=== PATIENT | female | born 1990 | race Caucasian/White ===

== ENCOUNTER 2017-01-14 20:58 | Emergency (ER) | payer OTHER ==
[2017-01-14 21:07] VITALS: BP 138/89; PULSE 90; TEMP 98.6; BMI 30.9
--- NOTE | 2017-01-14 21:19 | PDOC ---
History of Present Illness - History of Present Illness Initial Comments: 01/14/17 21:23 The patient is a 26 year old female with no past medical hx who presents to the ED complaining of dysuria and frequency since this morning. The patient reports she has had UTIs in the past and believes she has one right now due to her symptoms. The patient was last seen here on 02/28/16 for the same complaint. The patient denies hematuria, fever, chills, back pain, abdominal pain. <Zaida Humphreys - Last Filed: 01/14/17 21:23> <Marion Hardwick - Last Filed: 01/15/17 02:42> - General Chief Complaint: Urinary Problem Stated Complaint: I DON'T FEEL GOOD Time Seen by Provider: 01/14/17 21:10 Past History <Zaida Humphreys - Last Filed: 01/14/17 21:23> - Past Medical History Asthma: No Cancer: No Cardiac Disorders: No Diabetes: No HTN: No Seizures: No Thyroid Disease: No Other medical history: DENIES - Surgical History Abdominal Surgery: Yes (gastric sleeve 08/10) Cholecystectomy: Yes - Immunization History Immunization Up to Date: No - Psycho/Social/Smoking Cessation Hx Anxiety: No Suicidal Ideation: No Smoking Status: No Smoking History: Never smoked Have you smoked in the past 12 months: No Number of Cigarettes Smoked Daily: 0 Hx Alcohol Use: No Drug/Substance Use Hx: No Substance Use Type: None Hx Substance Use Treatment: No <Marion Hardwick - Last Filed: 01/15/17 02:42> - Past Medical History Allergies/Adverse Reactions: Allergies Allergy/AdvReac Type Severity Reaction Status Date / Time No Known Allergies Allergy Verified 05/24/13 19:19 Home Medications: Ambulatory Orders Nitrofurantoin Monohyd/M-Cryst [Macrobid -] 100 mg PO BID #10 capsule 01/14/17 Phenazopyridine HCl [Pyridium] 200 mg PO TID #6 tablet 01/14/17 Review of Systems - Review of Systems Able to Perform ROS?: Yes Comments:: 01/14/17 21:24 CONSTITUTIONAL: Absent: fever, no chills, no fatigue EYES: Absent: visual changes ENT: Absent: ear pain, no sore throat CARDIOVASCULAR: Absent: chest pain, no palpitations RESPIRATORY: Absent: cough, no SOB GI: Absent: abdominal pain, no nausea, no vomiting, no constipation, no diarrhea GENITOURINARY: +Dysuria, frequency. Absent: no hematuria MUSCULOSKELETAL: Absent: back pain, no arthralgia, no myalgia SKIN: Absent: rash NEURO: Absent: headache <Zaida Humphreys - Last Filed: 01/14/17 21:23> *Physical Exam - Vital Signs Last Vital Signs Temp Pulse Resp BP Pulse Ox 98.6 F 90 16 138/89 100 01/14/17 21:05 01/14/17 21:05 01/14/17 21:05 01/14/17 21:05 01/14/17 21:05 - Physical Exam Comments: 01/14/17 21:24 GENERAL: The patient is awake, alert, and fully oriented, in no acute distress. HEAD: Normal with no signs of trauma. EYES: Pupils equal, round and reactive to light, extraocular movements intact, sclera anicteric, conjunctiva clear with no pallor. ENT: Ears normal, nares patent, oropharynx clear without exudates. Moist mucous membranes. NECK: Normal range of motion, supple without lymphadenopathy, JVD, or masses. LUNGS: Breath sounds equal, clear to auscultation bilaterally. No wheeze/ crackles. HEART: Regular rate and rhythm, normal S1 and S2 without murmur or rub. ABDOMEN: Soft/nontender/nondistended. BS wnl. No guarding or rebound. No palpable masses. No hepatosplenomegaly. EXTREMITIES: Normal range of motion, no edema. No clubbing or cyanosis. No cords, erythema, or tenderness. NEUROLOGICAL: Cranial nerves II through XII grossly intact. Normal speech, normal gait. PSYCH: Normal mood, normal affect. SKIN: Warm, Dry, normal turgor, no rashes or lesions noted. <MamtaZaida diaz - Last Filed: 01/14/17 21:23> - Vital Signs Last Vital Signs Temp Pulse Resp BP Pulse Ox 98.6 F 90 16 138/89 100 01/14/17 21:05 01/14/17 21:05 01/14/17 21:05 01/14/17 21:05 01/14/17 21:05 <Marion Hardwick - Last Filed: 01/15/17 02:42> Progress Note - Progress Note Progress Note: Documentation has been prepared under my direction and personally reviewed by me in its entirety. I attest that this documented accurately reflects all work, treatment, procedures and medical decision making performed by me. <Marion Hardwick - Last Filed: 01/15/17 02:42> Medical Decision Making - Medical Decision Making As noted above, this otherwise healthy 26-year-old woman presents with 1 day history of dysuria and urinary frequency/urgency. Patient has had several UTIs in the past and symptoms have been similar to today's. No fever/chills, nausea/ vomiting or back pain. Exam, as noted above is normal. Urinalysis shows positive nitrate, 10-20 RBCs, 10-20 WBCs and few bacteria.PGU negative Urine C&S has been sent. When the patient was last seen here with urinary tract infection (03/14), she will had persistent symptoms while being treated with Cipro. She was prescribed Macrodantin at that point. Patient states that she did well after Macrodantin was prescribed. Will give the patient Macrobid 100 mg twice a day for 5 days. Pyridium 200 mg will be prescribed at 3 tabs per day for 2 days. First dose of each medication will be given here in the emergency room. Patient should return to the emergency room if she has worsening pain, fever/ chills, back pain or vomiting <Marion Hardwick - Last Filed: 01/15/17 02:42> *DC/Admit/Observation/Transfer - Attestations Scribe Attestion: 01/14/17 21:23 Documentation prepared by Zaida Humphreys, acting as emergency medical technician/driver for Marion Hardwick MD/DO. <Zaida Humphreys - Last Filed: 01/14/17 21:23> <Marion Harwdick - Last Filed: 01/15/17 02:42> Diagnosis at time of Disposition: Urinary tract infection Qualifiers: Urinary tract infection type: acute cystitis Hematuria presence: without hematuria Qualified Code(s): N30.00 - Acute cystitis without hematuria - Discharge Dispostion Disposition: HOME Condition at time of disposition: Stable - Prescriptions Prescriptions: Nitrofurantoin Monohyd/M-Cryst [Macrobid -] 100 mg PO BID #10 capsule Phenazopyridine HCl [Pyridium] 200 mg PO TID #6 tablet - Referrals Referrals: Yumi Ceballos MD [Primary Care Provider] - - Patient Instructions Printed Discharge Instructions: Urinary Tract Infection Additional Instructions: drink plenty of fluids Macrobid 100mg twice a day for 5 days Pyridium 200mg 3 times a day for 3 days return to ER if you have worsening pain/fever/vomiting
[2017-01-14 21:23] LABS: PH,URINE 5.5 (4.5-8); URINE BILIRUBIN Negative (NEGATIVE); URINE GLUCOSE (UA) Negative (NEGATIVE); URINE KETONE Negative (NEGATIVE); URINE NITRITE Positive (NEGATIVE); URINE PROTEIN Negative (NEGATIVE); URINE UROBILINOGEN 0.2 E.U/dl (0.2-1.0)
[2017-01-14 21:24] LABS: URINE BLOOD 1+ (NEGATIVE); URINE COLOR YELLOW; URINE LEUK ESTERASE 1+ (NEGATIVE)
[2017-01-14] MEDS ORDERED: PHENAZOPYRIDINE HCL 100 MG TABLET (FP) PO ONE (21:29)
[2017-01-14] MEDS ORDERED: NITROFURANTOIN MACROCRYSTAL 50 MG CAPSULE (FP) PO SCH (21:30)
[2017-01-14] MEDS ORDERED: PHENAZOPYRIDINE HCL 100 MG TABLET (FP) ONE (21:31)
[2017-01-14] MEDS ORDERED: NITROFURANTOIN MACROCRYSTAL 50 MG CAPSULE (FP) ONE (21:31)
[2017-01-14 21:39] LABS: URINE APPEARANCE HAZY; URINE BACTERIA FEW /hpf (NEGATIVE)
== END 2017-01-14 21:36 | disposition home or self-care (01) ==
LOC: FER 20:58
DX: N30.00 Acute cystitis without hematuria (principal); Z98.84 Bariatric surgery status
CPT/HCPCS: 81003; 81015; 84703; 87086; 99281-25

== ENCOUNTER 2017-02-21 09:31 | Emergency (ER) | payer OTHER ==
--- NOTE | 2017-02-21 09:37 | PDOC ---
History of Present Illness - General Chief Complaint: Urinary Problem Stated Complaint: BURING ON URINATION Time Seen by Provider: 02/21/17 09:37 - History of Present Illness Initial Comments: 02/21/17 09:52 Chief complaint: Dysuria and urgency History of present illness: Symptoms began this morning. No hematuria. No fever or back pain. Frequent UTIs, last of which approximately one month ago, treated with Macrodantin with symptoms resolving. No history of kidney disease. Never evaluated by a urologist. Review of systems: Denies vaginal itching or discharge suggestive of vaginitis. Denies fever or back pain, as noted above. Denies chest pain, shortness of breath, abdominal pain, nausea, vomiting, diarrhea. Menses regular, no control including hormonal therapy. Past medical history: Recurrent UTIs. Cholecystitis in the past without surgery. Otherwise healthy. No serious medical or surgical illnesses in the past Social history: Active, no disability, denies tobacco alcohol or nonprescription drugs Family history: Reviewed and noncontributory including kidney disease, early coronary artery disease, metabolic disease including diabetes, and cancer Physical exam: Alert and oriented well-developed well-nourished no acute distress cheerful and cooperative Afebrile, vital signs normal HEENT clear Neck supple without bruit mass or nodes Chest clear CV regular without murmur rub or gallop Abdomen nondistended, soft without masses tenderness organomegaly. Normal bowel sounds. No CVAT Extremities no CCE Skin clear, no rash, adequate turgor and what mucous membranes Neurological intact. Gait stable and unimpaired Impression: Recurrent UTI. Other possibilities include vaginitis. Rule out . No suggestion of ascending kidney involvement or nephrolithiasis Plan: Urinalysis, empiric antibiotic treatment and Pyridium for symptomatic treatment, culture and sensitivity, urology referral. 02/21/17 09:56 Past History - Past Medical History Allergies/Adverse Reactions: Allergies Allergy/AdvReac Type Severity Reaction Status Date / Time No Known Allergies Allergy Verified 02/21/17 09:34 Home Medications: Ambulatory Orders Nitrofurantoin Monohyd/M-Cryst [Macrobid -] 100 mg PO BID #14 capsule 02/21/17 Phenazopyridine HCl [Pyridium] 200 mg PO TID PRN #20 tablet 02/21/17 Asthma: No Cancer: No Cardiac Disorders: No Diabetes: No Disorders: Yes (UTI) HTN: No Seizures: No Thyroid Disease: No - Surgical History Abdominal Surgery: Yes (gastric sleeve 08/10) Cholecystectomy: Yes - Immunization History Immunization Up to Date: No - Psycho/Social/Smoking Cessation Hx Anxiety: No Suicidal Ideation: No Smoking Status: No Smoking History: Never smoked Have you smoked in the past 12 months: No Number of Cigarettes Smoked Daily: 0 Hx Alcohol Use: No Drug/Substance Use Hx: No Substance Use Type: None Hx Substance Use Treatment: No Medical Decision Making - Medical Decision Making 02/21/17 10:33 White blood cells, leukocyte esterase positive in the urine. Culture pending Antibiotics and Pyridium prescribed. Referral to urologist. Patient in no pain or other distress upon discharge to follow-up as directed *DC/Admit/Observation/Transfer Diagnosis at time of Disposition: Urinary tract infection Qualifiers: Urinary tract infection type: acute cystitis Hematuria presence: without hematuria Qualified Code(s): N30.00 - Acute cystitis without hematuria - Discharge Dispostion Disposition: HOME Condition at time of disposition: Stable Admit: No - Prescriptions Prescriptions: Nitrofurantoin Monohyd/M-Cryst [Macrobid -] 100 mg PO BID #14 capsule Phenazopyridine HCl [Pyridium] 200 mg PO TID PRN #20 tablet PRN Reason: burning on urination, urgency, - Referrals Referrals: Dwight See MD., MD [Staff Physician] - 1 week - Patient Instructions Printed Discharge Instructions: DI for Urinary Tract Infection (UTI)
[2017-02-21 09:39] VITALS: BP 120/77; PULSE 84; TEMP 97.9; BMI 31.7
[2017-02-21] MEDS ORDERED: PHENAZOPYRIDINE HCL 100 MG TABLET (FP) PO ONE (09:51)
[2017-02-21] MEDS ORDERED: PHENAZOPYRIDINE HCL 100 MG TABLET (FP) ONE (09:56)
[2017-02-21 10:02] LABS: PH,URINE 5.5 (4.5-8); URINE BILIRUBIN Negative (NEGATIVE); URINE GLUCOSE (UA) Negative (NEGATIVE); URINE KETONE Negative (NEGATIVE); URINE NITRITE Negative (NEGATIVE); URINE PROTEIN Negative (NEGATIVE); URINE UROBILINOGEN 0.2 E.U/dl (0.2-1.0)
[2017-02-21 10:04] LABS: URINE BLOOD 1+ (NEGATIVE)
[2017-02-21 10:05] LABS: URINE APPEARANCE SL CLOUDY; URINE COLOR YELLOW; URINE LEUK ESTERASE 3+ (NEGATIVE)
[2017-02-21 10:06] LABS: URINE BACTERIA MODERATE /hpf (NEGATIVE)
== END 2017-02-21 10:45 | disposition home or self-care (01) ==
LOC: FER 09:31
DX: N30.00 Acute cystitis without hematuria (principal); Z87.440 Personal history of urinary (tract) infections; Z98.84 Bariatric surgery status
CPT/HCPCS: 81003; 81015; 84703; 87086; 87186; 99282-25

== ENCOUNTER 2017-12-02 09:49 | Emergency (ER) | payer OTHER ==
[2017-12-02 09:53] VITALS: BMI 33.5
--- NOTE | 2017-12-02 10:13 | PDOC ---
History of Present Illness - General Chief Complaint: Nausea Stated Complaint: NAUSEA Time Seen by Provider: 12/02/17 09:58 History Source: Patient Exam Limitations: No Limitations - History of Present Illness Initial Comments: 27 yo F no significant PMH presents with nausea, vomiting multiple times last night. She is concerned because two family members were diagnosed with flu 2 days ago. Denies congestion, fever, cough. She vomited multiple times last night with chills. Non-bloody, nonbilious. No diarrhea. Currently complains of poor appetite, stomach soreness. Past History - Past Medical History Allergies/Adverse Reactions: Allergies Allergy/AdvReac Type Severity Reaction Status Date / Time No Known Allergies Allergy Verified 12/02/17 09:50 Home Medications: Ambulatory Orders Ondansetron [Zofran -] 4 mg PO TID PRN #21 tablet 12/02/17 Oseltamivir Phosphate [Tamiflu -] 75 mg PO DAILY #10 capsule 12/02/17 Asthma: No Cancer: No Cardiac Disorders: No COPD: No Diabetes: No Disorders: Yes (UTI) HTN: No Seizures: No Thyroid Disease: No - Surgical History Abdominal Surgery: Yes (gastric sleeve 08/10) Cholecystectomy: Yes - Immunization History Immunization Up to Date: No - Suicide/Smoking/Psychosocial Hx Smoking Status: No Smoking History: Never smoked Have you smoked in the past 12 months: No Number of Cigarettes Smoked Daily: 0 Hx Alcohol Use: No Drug/Substance Use Hx: No Substance Use Type: None Hx Substance Use Treatment: No Review of Systems - Review of Systems Able to Perform ROS?: Yes Comments:: GENERAL/CONSTITUTIONAL: No fever or chills. No weakness. HEAD, EYES, EARS, NOSE AND THROAT: No change in vision. No ear pain or discharge. No sore throat. CARDIOVASCULAR: No chest pain or shortness of breath. RESPIRATORY: No cough, wheezing, or hemoptysis. GASTROINTESTINAL: +Nausea/vomiting. No diarrhea or constipation. GENITOURINARY: No dysuria, frequency, or change in urination. MUSCULOSKELETAL: No joint or muscle swelling or pain. No neck or back pain. SKIN: No rash NEUROLOGIC: No headache, vertigo, loss of consciousness, or change in strength/ sensation. ENDOCRINE: No increased thirst. No abnormal weight change. HEMATOLOGIC/LYMPHATIC: No anemia, easy bleeding, or history of blood clots. ALLERGIC/IMMUNOLOGIC: No hives or skin allergy. *Physical Exam - Vital Signs Last Vital Signs Temp Pulse Resp BP Pulse Ox 98.7 F 102 H 18 107/72 100 12/02/17 09:50 12/02/17 09:50 12/02/17 09:50 12/02/17 09:50 12/02/17 09:50 - Physical Exam Comments: GENERAL: Awake, alert, and fully oriented, in no acute distress HEAD: No signs of trauma EYES: PERRLA, EOMI, sclera anicteric, conjunctiva clear ENT: Auricles normal inspection, hearing grossly normal, nares patent, oropharynx clear without exudates. Dry mucosa NECK: Normal ROM, supple, no lymphadenopathy, JVD, or masses LUNGS: Breath sounds equal, clear to auscultation bilaterally. No wheezes, and no crackles HEART: Regular rate and rhythm, normal S1 and S2, no murmurs, rubs or gallops ABDOMEN: Soft, nontender, normoactive bowel sounds. No guarding, no rebound. No masses EXTREMITIES: Normal range of motion, no edema. No clubbing or cyanosis. No cords, erythema, or tenderness NEUROLOGICAL: Cranial nerves II through XII grossly intact. Normal speech, normal gait SKIN: Warm, Dry, normal turgor, no rashes or lesions noted. Medical Decision Making - Medical Decision Making 12/02/17 11:35 Pt reports improvement with IV medication. Stable for DC home. No signs of acute abdomen. *DC/Admit/Observation/Transfer Diagnosis at time of Disposition: Vomiting Qualifiers: Vomiting type: unspecified Vomiting Intractability: non-intractable Nausea presence: with nausea Qualified Code(s): R11.2 - Nausea with vomiting, unspecified - Discharge Dispostion Disposition: HOME Condition at time of disposition: Stable Admit: No - Prescriptions Prescriptions: Ondansetron [Zofran -] 4 mg PO TID PRN #21 tablet PRN Reason: Nausea And/Or Vomiting Oseltamivir Phosphate [Tamiflu -] 75 mg PO DAILY #10 capsule - Referrals - Patient Instructions Printed Discharge Instructions: DI for Vomiting -- Adult - Post Discharge Activity Forms/Work/School Notes: Back to Work
[2017-12-02 10:24] LABS: URINE APPEARANCE Clear; URINE BILIRUBIN Negative (NEGATIVE); URINE GLUCOSE (UA) Negative (NEGATIVE); URINE KETONE Negative (NEGATIVE); URINE LEUK ESTERASE Negative (NEGATIVE); URINE NITRITE Negative (NEGATIVE); URINE PROTEIN Negative (NEGATIVE); URINE UROBILINOGEN 0.2 (0.2-1.0)
[2017-12-02] MEDS ORDERED: FAMOTIDINE 20 MG/50 ML IVPB 50 ML IVPB ONE (10:24)
[2017-12-02] MEDS ORDERED: SODIUM CHLORIDE 1,000 ML IV STA (10:24)
[2017-12-02] MEDS ORDERED: ONDANSETRON 4 MG/2 ML VIAL IVPUSH ONE (10:24)
[2017-12-02 10:25] LABS: URINE BLOOD Trace-lysed (NEGATIVE); URINE COLOR AMBER
[2017-12-02 10:29] LABS: EPI CELLS FEW /HPF; URINE RBC 0-3 /hpf (0-3); URINE WBC 0-3 (0-5)
[2017-12-02] MEDS ORDERED: ONDANSETRON 4 MG/2 ML VIAL ONE (10:36)
[2017-12-02] MEDS ORDERED: FAMOTIDINE 20 MG/50 ML IVPB 20 MG/50 ML MG IVPB ONE ×2 (10:36→11:00)
[2017-12-02 11:06] VITALS: BP 94/54; PULSE 80; TEMP 98.8
== END 2017-12-02 11:40 | disposition home or self-care (01) ==
LOC: FER 09:49
PROC: 3E033GC Introduction of Other Therapeutic Substance into Peripheral Vein, Percutaneous Approach (ICD-10-PCS; principal; 2017-12-02)
PROC: 3E0337Z Introduction of Electrolytic and Water Balance Substance into Peripheral Vein, Percutaneous Approach (ICD-10-PCS; 2017-12-02)
DX: R11.2 Nausea with vomiting, unspecified (principal); Z98.84 Bariatric surgery status
CPT/HCPCS: 81003; 81015; 84703; 99283-25

== ENCOUNTER 2018-11-11 21:42 | Emergency (ER) | payer OTHER ==
--- NOTE | 2018-11-11 21:46 | PDOC ---
History of Present Illness - General History Source: Patient Exam Limitations: No Limitations - History of Present Illness Initial Comments: 11/11/18 22:36 The patient is a 28 year old female with no significant PMH who presents to the emergency department with a sore throat for 2 days. The patient reports that she has had some associated runny nose, cough and congestion with her sore throat. She also reports an at home fever of 99. She denies getting the flu shot or any known sick contacts. The patient denies any other symptoms or complaints. PAST MEDICAL HISTORY: no significant history PAST SURGICAL HISTORY: no significant history FAMILY HISTORY: no pertinent history SOCIAL HISTORY: Pt lives with family and is employed. MEDICATIONS: reviewed ALLERGIES: As per nursing notes General: No fevers or chills, no weakness, no weight loss HEENT: (+)sore throat. No change in vision. No ear pain CardioVascular: No chest pain or shortness of breath Respiratory:(+)cough, congestion. No wheezing. Gastrointestinal: no nausea, vomiting, diarrhea or constipation, No rectal bleeding Genitourinary: No dysuria, hematuria, or frequency Musculoskeletal: No joint or muscle pain or swelling Neurologic: No headache, vertigo, dizziness or loss of consciousness Psychiatric: nor depression Skin: No rashes or easy bruising Endocrine: no increased thirst or abnormal weight change Allergic: no skin or latex allergy All other systems reviewed and normal General: Well-nourished well-developed individual, no acute distress HEENT: Throat: (+)tonsils slightly enlarged, erythema of post oropharynx. No exudate Neck: Supple, no meningeal signs, no lymphadenopathy Eyes::Pupils equal reactive and round, extraocular motion intact Chest: Nontender to palpation Cardiac: S1-S2 normal, regular rate and rhythm, no murmurs rubs or gallops Respiratory: Lungs clear to auscultation bilateral Extremities: Warm, dry, no cyanosis, clubbing, or edema Skin: No rashes Neuro: Alert and oriented x3, nonfocal exam, grossly intact, normal gait Psych: Normal mood and affect Documentation prepared by Roseanna Briceño, acting as administrative medical director for Monae Winter MD. <Roseanna Briceño - Last Filed: 11/11/18 22:36> - General History Source: Patient Exam Limitations: No Limitations - History of Present Illness Initial Comments: 11/11/18 22:46 A portion of this note was documented by scribe services under my direction. I have reviewed the details of the note, within reason, and agree with the documentation with the following case summary and management plan written by me. Patient treated in the ED. Nursing notes are reviewed and incorporated into the medical decision-making. Vital signs reviewed. Assessment and plan: This is 28-year-old female who comes in complaining of viral E type upper respiratory tract symptoms mild low-grade fever, headache, body aches, sore throat, cough, stuffy nose and congestion. Patient had a rapid strep that was done and she did have some exudate in her posterior oropharynx and lymphadenopathy this rapid strep was negative Patient did not get a influenza shot this year so a rapid flu was sent however the results take several hours to come back so patient discharged a prescription sent to her pharmacy for Tamiflu she will call in the morning if it is positive she will get the prescription filled and start taking it. <Monae Winter I - Last Filed: 11/11/18 22:50> - General Chief Complaint: Respiratory Stated Complaint: SORE THROAT, RUNNY NOSE Time Seen by Provider: 11/11/18 21:45 Past History <Roseanna Briceño - Last Filed: 11/11/18 22:36> - Past Medical History Asthma: No Cancer: No Cardiac Disorders: No COPD: No Diabetes: No Disorders: Yes (UTI) HTN: No Seizures: No Thyroid Disease: No - Surgical History Abdominal Surgery: Yes (gastric sleeve 08/10) Cholecystectomy: Yes - Immunization History Immunization Up to Date: No - Suicide/Smoking/Psychosocial Hx Smoking Status: No Smoking History: Never smoked Have you smoked in the past 12 months: No Number of Cigarettes Smoked Daily: 0 Hx Alcohol Use: No Drug/Substance Use Hx: No Substance Use Type: None Hx Substance Use Treatment: No <Monae Winter I - Last Filed: 11/11/18 22:50> - Past Medical History Allergies/Adverse Reactions: Allergies Allergy/AdvReac Type Severity Reaction Status Date / Time No Known Allergies Allergy Verified 11/11/18 21:44 Home Medications: Ambulatory Orders Oseltamivir Phosphate [Tamiflu -] 75 mg PO BID #10 capsule 11/11/18 Pnv No.95/Ferrous Fum/Folic AC [ Vitamin Tablet] 1 each PO DAILY *Physical Exam - Vital Signs Last Vital Signs Temp Pulse Resp BP Pulse Ox 99.1 F 120 H 16 116/74 100 11/11/18 21:46 11/11/18 21:46 11/11/18 21:46 11/11/18 21:46 11/11/18 21:46 <Roseanna Briceño - Last Filed: 11/11/18 22:36> Moderate Sedation - Procedure Monitoring Vital Signs: Procedure Monitoring Vital Signs Temperature 99.1 F 11/11/18 21:46 Pulse Rate 120 H 11/11/18 21:46 Respiratory Rate 16 11/11/18 21:46 Blood Pressure 116/74 11/11/18 21:46 O2 Sat by Pulse Oximetry (%) 100 11/11/18 21:46 <Roseanna Briceño - Last Filed: 11/11/18 22:36> *DC/Admit/Observation/Transfer <Roseanna Briceño - Last Filed: 11/11/18 22:36> - Discharge Dispostion Decision to Admit order: No <Monae Winter I - Last Filed: 11/11/18 22:50> Diagnosis at time of Disposition: Viral upper respiratory tract infection with cough - Discharge Dispostion Disposition: HOME Condition at time of disposition: Stable - Prescriptions Prescriptions: Oseltamivir Phosphate [Tamiflu -] 75 mg PO BID #10 capsule - Patient Instructions Additional Instructions: the strep screen was negative for strep. The flu screen will take several hours to come back so I'm sending you home and tomorrow morning call the ER and we will give you the results of the flu screen. If it is positive he'll need to go to the pharmacy and brain picker the prescription that is there called Tamiflu and take it as directed it will be twice a day for 5 days if it is negative the medication will not help her symptoms. Tylenol or Motrin as needed for pain , headache or fevers. Return to the emergency department immediately with ANY new, persistent or worsening symptoms. Continue any medications as previously prescribed by your physician. You should follow up with your primary doctor as soon as possible regarding today's emergency department visit. . Please make sure your doctor reviews the results of your emergency evaluation. Thank you for coming to the Emergency Department today for your care. It was a pleasure to see you today. Please note that your evaluation is INCOMPLETE until you follow-up with your doctor.
[2018-11-11 21:50] VITALS: BP 116/74; PULSE 120; TEMP 99.1; BMI 34.7
--- NOTE | 2018-11-11 23:31 | PDOC ---
*Physical Exam - Vital Signs Last Vital Signs Temp Pulse Resp BP Pulse Ox 99.1 F 120 H 16 116/74 100 11/11/18 21:46 11/11/18 21:46 11/11/18 21:46 11/11/18 21:46 11/11/18 21:46 Progress Note - Progress Note Progress Note: Patient's influenza screen came back positive for influenza type A after she left. Call patient and spoke with her. Told patient to start the Tamiflu. Patient said she would go to the pharmacy tonight. The prescription and take the first dose tonight. *DC/Admit/Observation/Transfer Diagnosis at time of Disposition: Viral upper respiratory tract infection with cough - Discharge Dispostion Disposition: HOME Condition at time of disposition: Stable - Prescriptions Prescriptions: Oseltamivir Phosphate [Tamiflu -] 75 mg PO BID #10 capsule - Referrals - Patient Instructions Additional Instructions: the strep screen was negative for strep. The flu screen will take several hours to come back so I'm sending you home and tomorrow morning call the ER and we will give you the results of the flu screen. If it is positive he'll need to go to the pharmacy and pickle cutter the prescription that is there called Tamiflu and take it as directed it will be twice a day for 5 days if it is negative the medication will not help her symptoms. Tylenol or Motrin as needed for pain , headache or fevers. Return to the emergency department immediately with ANY new, persistent or worsening symptoms. Continue any medications as previously prescribed by your physician. You should follow up with your primary doctor as soon as possible regarding today's emergency department visit. . Please make sure your doctor reviews the results of your emergency evaluation. Thank you for coming to the Emergency Department today for your care. It was a pleasure to see you today. Please note that your evaluation is INCOMPLETE until you follow-up with your doctor. - Post Discharge Activity Forms/Work/School Notes: Back to Work
== END 2018-11-11 22:56 | disposition home or self-care (01) ==
LOC: FER 21:42
DX: J06.9 Acute upper respiratory infection, unspecified (principal); R05 Cough; Z98.84 Bariatric surgery status
CPT/HCPCS: 87070; 87804; 87880; 99281-25

== ENCOUNTER 2018-11-13 16:52 | Emergency (ER) | payer OTHER ==
[2018-11-13 17:01] VITALS: BP 107/75; PULSE 98; TEMP 98.3; BMI 34.7
--- NOTE | 2018-11-13 17:02 | PDOC ---
History of Present Illness - General Chief Complaint: Sore Throat Stated Complaint: sore throat Time Seen by Provider: 11/13/18 16:55 - History of Present Illness Initial Comments: The patient is a 28y F at 11wks by LMP w/ no reported PMH who presents for evaluation of flu-like symptoms since Monday. Was seen here on Monday and was started on Zahra-flu at this time. Patient had a negative flu swab at that time as well. Has been taking Tylenol and Robitussin for symptomatic relief. Reports worsening ear pain. Endorses subjective fevers, NBNB emesis x1 yesterday Denies chest pain, vision changes, abdominal pain, vaginal bleeding or discharge , dysuria, hematuria, or changes in sensation 11/13/18 17:00 Past History - Past Medical History Allergies/Adverse Reactions: Allergies Allergy/AdvReac Type Severity Reaction Status Date / Time No Known Allergies Allergy Verified 11/13/18 16:53 Home Medications: Ambulatory Orders Oseltamivir Phosphate [Tamiflu -] 75 mg PO BID #10 capsule 11/11/18 Pnv No.95/Ferrous Fum/Folic AC [ Vitamin Tablet] 1 each PO DAILY Asthma: No Cancer: No Cardiac Disorders: No COPD: No Diabetes: No Disorders: Yes (UTI) HTN: No Seizures: No Thyroid Disease: No - Surgical History Abdominal Surgery: Yes (gastric sleeve 08/10) Cholecystectomy: Yes - Immunization History Immunization Up to Date: No - Suicide/Smoking/Psychosocial Hx Smoking Status: No Smoking History: Never smoked Have you smoked in the past 12 months: No Number of Cigarettes Smoked Daily: 0 Hx Alcohol Use: No Drug/Substance Use Hx: No Substance Use Type: None Hx Substance Use Treatment: No Review of Systems - Review of Systems Able to Perform ROS?: Yes Comments:: GENERAL/CONSTITUTIONAL: +subjective fever or chills. No weakness HEAD, EYES, EARS, NOSE AND THROAT: No change in vision. No ear pain or discharge CARDIOVASCULAR: No chest pain or shortness of breath RESPIRATORY: Denies hemoptysis GASTROINTESTINAL: + nausea, vomiting x1; Denies diarrhea or constipation GENITOURINARY: No dysuria, frequency, or change in urination MUSCULOSKELETAL: +myalgia SKIN: No rash NEUROLOGIC: No headache, vertigo, loss of consciousness, or change in strength/ sensation ENDOCRINE: No increased thirst. No abnormal weight change HEMATOLOGIC/LYMPHATIC: No anemia, easy bleeding, or history of blood clots ALLERGIC/IMMUNOLOGIC: No hives or skin allergy 11/13/18 19:00 Is the patient limited Kiswahili proficient: No *Physical Exam - Vital Signs Vital Signs Temp Pulse Resp BP Pulse Ox 98.3 F 98 H 20 107/75 100 11/13/18 16:53 11/13/18 16:53 11/13/18 16:53 11/13/18 16:53 11/13/18 16:53 11/13/18 19:01 - Physical Exam Comments: GENERAL: Awake, alert, and fully oriented, in no acute distress HEAD: No signs of trauma, normocephalic, atraumatic EYES: PERRLA, EOMI, sclera anicteric, conjunctiva clear ENT: Hearing grossly normal, nares patent, oropharynx w/ mild erythema and exudates. Moist mucosa. TMs clear LUNGS: No distress, speaks full sentences, clear to auscultation bilaterally HEART: Regular rate and rhythm, normal S1 and S2, no murmurs appreciated, peripheral pulses normal and equal bilaterally ABDOMEN: Soft, nontender, normoactive bowel sounds. No guarding, no rebound EXTREMITIES : Normal inspection, Normal range of motion, no edema. No clubbing or cyanosis NEUROLOGICAL: Cranial nerves II through XII grossly intact. Normal speech, normal gait, no focal sensorimotor deficits SKIN: Warm, Dry, normal turgor, no rashes or lesions noted 11/13/18 19:01 Medical Decision Making - Medical Decision Making The patient is a 28 female who was recently seen and diagnosed with flu and started on Zahra-flu on 11/11/2018 presents today with persistent symptoms and worsening ear pain. ddx: influenza, strep, otitis media, continued viral URI ED Course TMs clear, no otitis media Patient with 1 centor criteria, not likely strep throat Patient afebrile in ED Patient counseled on continued symptomatic treatment of influenza -Continue to take Zahra-flu -Continue Tylenol and Robitussen for symptomatic relief -F/u w/ PCP Plan for D/C w/ PCP f/u Return precautions and discharge instructions given Patient in agreement and verbalized understanding Dispo: home 11/13/18 19:07 *DC/Admit/Observation/Transfer Diagnosis at time of Disposition: Viral upper respiratory tract infection with cough - Discharge Dispostion Disposition: HOME Condition at time of disposition: Stable Decision to Admit order: No - Referrals Referrals: [facility] [place] [facility] [place] [Provider Group] - Patient Instructions Printed Discharge Instructions: DI for Influenza -- Adult Additional Instructions: You were seen in the Emergency Department today for persistent flu-like symptoms. You were found to NOT have an acute ear infection and you are not likely to have a strep infection. Continue to take the Zahra-flu as prescribed. You may continue to take Tylenol up to 4000mg daily and the Robitussen as directed. Follow up with your primary care provider tomorrow as discussed. Review the handouts provided at discharge. Return to the Emergency Department if you have persistent nausea/vomiting, fevers, chest pain, trouble breathing, inability to tolerate food, or any new/ concerning symptoms. - Post Discharge Activity Forms/Work/School Notes: Back to Work
--- NOTE | 2018-11-13 17:14 | PDOC ---
Attending Attestation - Resident Resident Name: Magnus Barber - ED Attending Attestation I have performed the following: I have examined & evaluated the patient, The case was reviewed & discussed with the resident, I agree w/resident's findings & plan, Exceptions are as noted - HPI HPI: 11/13/18 17:18 28yo F currently 11 weeks , with no sig PMH presents to the ED with persistent upper respiratory sxs and worsening ear and throat pain. Pt was diagnosed with the flu 2 days ago here when seen for the same symptoms. Pt reports b/l ear pressure and pain, stuff nose, sore throat, 1 episode of NBNB emesis, non productive cough and body aches. She is on day 3 of tamiflu. Has been taking tylenol 1G Q6hr for her symptoms with minimal relief. She has also tried robitussin. Denies fevers, headache, focal weakness/numbness, difficulity swallowing, drooling, SOB, CP, abd pain, diarrhea, urinary frequency, dysuria, urgency, rashes, LE edema. Has not followed up with PMD since she was seen here 2 days ago. She requests a work note as she states she is not able to go to work tomorrow with these symptoms. - Physicial Exam PE: 11/13/18 17:12 GENERAL: Awake, alert, and fully oriented, in no acute distress watching videos on her phone EYES: PERRLA, EOMI, sclera anicteric, conjunctiva clear ENT: TM with no bluging, erythema, or purulence. +good light reflex b/l. +clear nasal DC, moist mucosa, oropharynx with b/l tonsillar exudates and erythema, uvula midline, 1+ tonsils NECK: Normal ROM, supple, +tender ant cervical LAD b/l LUNGS: Breath sounds equal, clear to auscultation bilaterally. No wheezes, and no crackles HEART: Regular rate and rhythm, normal S1 and S2, no murmurs, rubs or gallops ABDOMEN: Soft, nontender, normoactive bowel sounds. No guarding, no rebound. No masses EXTREMITIES: Normal range of motion, no edema. No cords, erythema, or tenderness. WWP NEUROLOGICAL: Normal speech, cranial nerves intact, equal strength and sensation b/l SKIN: Warm, Dry, normal turgor, no rashes or lesions noted. - Medical Decision Making 11/13/18 17:31 28yo F currently 11 weeks , diagnosed with flu 2 days ago presents to the ED with persistent flu symptoms. Vitals wnl. Exam with perisistent tonsillar exudates (strep test neg 2 days ago) and nasal DC. Pt is non toxic appearing with clear lungs, no evidence of sepsis. No emergent need for labs, CXR or further w/u at this time as she is well appearing. Pt has yet to follow up with her PMD. Will give her work note for tomorrow so that she can follow up. Discussed with pt that due to her , her symptoms may last longer but that she also has potential to get sicker so if she begins to develop fevers, productive cough, cp, sob, or any other concerning symptoms, to return to the ED immediately. Pt expresses understanding.
== END 2018-11-13 18:00 | disposition home or self-care (01) ==
LOC: FER 16:52
DX: J06.9 Acute upper respiratory infection, unspecified (principal); R05 Cough; Z98.84 Bariatric surgery status
CPT/HCPCS: 99281-25

== ENCOUNTER 2018-11-21 06:14 | Day surgery (SDC) | payer OTHER ==
[2018-11-20 16:58] VITALS: BMI 34.3
--- NOTE | 2018-11-21 06:22 | HP ---
[facility] - Chief Complaint Chief Complaint: This patient is here with a missed . History of Present Illness: This patient had a sonogram yesterday which revealed a missed at 8 weeks and 3 days gestation. The reason for the sonogram was vaginal spotting. History Source: Patient Limitations to Obtaining History: No Limitations - Past Medical History Allergies/Adverse Reactions: Allergies Allergy/AdvReac Type Severity Reaction Status Date / Time No Known Allergies Allergy Verified 11/20/18 16:59 HEALTH SAFETY AND ENVIRONMENT MANAGER: No: Alzheimer's, CVA, Dementia, Migraine, Multiple Sclerosis, Peripheral Neuropathy, Parkinson's, Seizure, Syncope, TIA, Vertigo, Other Cardiovascular: No: AFIB, Aneurysm, Aortic Insufficiency, Aortic Stenosis, CAD, CHF, Deep Vein Thrombosis, HTN, Hyperlipdemia, LA, Mitral Insufficiency, Mitral Stenosis, Murmur, Pulmonary Hypertension, Other Pulmonary: No: Asthma, Bronchitis, Cancer, COPD, O2 Dependent, Pneumonia, Previously Intubated, Pulmonary Embolus, Pulmonary Fibrosis, Sleep Apnea, Other Gastrointestinal: No: Ascites, Cancer, Constipation, Crohn's Disease, Diverticulitis, Diverticulosis, Esophageal Varices, Gastritis, GERD, GI Bleed, Hemorrhoids, Hiatal Hernia, Inflamatory Bowel Disease, Irritable Bowel Disease, Pancreatitis, Peptic Ulcer Disease, Ulcerative Colitis, Other Hepatobiliary: No: Cirrhosis, Cholelithiasis, Cholecystitis, Choledocholithiasis , Hepatitis A, Hepatitis B, Hepatitis C, Other Renal/: No: Renal Failure, Renal Inusuff, BPH, Cancer, Hematuria, Hemodialysis , Neurogenic Bladder, Renal Calculi, UTI, Other Reproductive: No: Ectopic , Endometriosis, Fibroids, PID, Polycystic Ovary Syndrome, Postmenopausal, Other ...LMP: 09/01/18 ...LMP Comment: missed ab Heme/Onc: No: Anemia, B12 Deficiency, Bleeding Disorder, Cancer, Current Chemotherapy, Current Radiation Therapy, Hemochromatosis, Hypercoaguable State, Myeloproliferative Synd, Sickle Cell Disease, Sickle Cell Trait, Thrombocytopenia, Other Infectious Disease: No: AIDS, C-Diff, Herpes Zoster, HIV, MRSA, STD's, Tuberculosis, VREF, Other Musculoskeletal: No: Bursitis, Chronic low back pain, Hemiparesis, Hemiplegia, Osteoarthritis, Paraplegia, Other Rheumatology: No: Fibromyalgia, Gout, Lupus, Rheumatoid Arthritis, Sarcoidosis, Vasculitis, Other ENT: No: Allergic Rhinitis, Sinusitis, Other Endocrine: No: Titus's Disease, Hillary's Disease, Diabetes Insipidus, Diabetes Mellitus, Hyperparathyroidism, Hyperthyroidism, Hypothyroidism, Osteopenia, SIADH, Other Dermatology: No: Basal Cell, Cellulitis, Eczema, Melanoma, Psoriasis, Squamous Cell, Other - Current Medications Current Medications: Home Medications Medication Instructions Recorded Pnv No.95/Ferrous Fum/Folic AC 1 each PO DAILY 11/11/18 [ Vitamin Tablet] Satellite Physical Exam - Physical Examination General Appearance: Well Nourished, Well Developed, Alert & Oriented x3 ENT: Clear, No Discharge, No masses Lung: Clear to auscultation Heart: Regular rate & rhythm, Normal S1, Normal S2 Breasts: Soft, Non-Tender, No masses bilaterally Abdomen: Soft, No tenderness, No CVA Extremities: No edema, No tenderness/swelling Pelvic Exam: Within normal limits External Genitalia, Within normal limits Vagina, Within normal limits Cervix, Within normal limits [place], Other Uterus (8 - 9 weeks gestational age) Neurological: Intact, Alert, Oriented Satellite Impression/Plan - Impression/Plan Impression: Missed Operative Procedure: Vacuum currettage D&C Date to be Performed: 11/21/18
[2018-11-21] MEDS ORDERED: MIDAZOLAM HCL 2 MG/2 ML SINGLE DOSE VIAL ONE ×2 (08:06)
[2018-11-21] MEDS ORDERED: PROPOFOL 20 ML ONE ×2 (08:10)
[2018-11-21] MEDS ORDERED: SUCCINYLCHOLINE CHLORIDE 200 MG/10 ML VIAL ONE (08:10)
[2018-11-21] MEDS ORDERED: ceFAZolin SODIUM 1 GM VIAL IVPB ONE (08:28)
[2018-11-21] MEDS ORDERED: PROMETHAZINE HCL 25 MG/1 ML VIAL IVPB PRN (08:50)
[2018-11-21] MEDS ORDERED: oxyCODONE HCL 5 MG TABLET PO PRN (08:50)
[2018-11-21] MEDS ORDERED: ONDANSETRON 4 MG/2 ML VIAL IVPUSH PRN (08:50)
[2018-11-21] MEDS ORDERED: LACTATED RINGERS SOLUTION 1,000 ML IV SCH (09:00)
--- NOTE | 2018-11-21 09:00 | OP ---
DATE OF OPERATION: 11/21/2018 PREOPERATIVE DIAGNOSIS: Missed . POSTOPERATIVE DIAGNOSIS: Missed . OPERATIVE PROCEDURE: Vacuum curettage. SURGEON: Rahat Grijalva MD ANESTHESIA: MAC. ESTIMATED BLOOD LOSS: Approximately 50 mL. DESCRIPTION OF PROCEDURE: The patient was brought to the operating room, placed in the supine position, given anesthesia by the anesthesiologist, placed in the lithotomy position, prepped and draped in the usual manner. The patient was examined. The uterus was noted to be approximately 8 to 9 weeks in size. Adnexa negative. The anterior lip of the cervix was grasped with a tenaculum. The cervix was dilated with Wyman dilators. A No. 9 curved curette was inserted. Unfortunately, the tubing that was available for the Marion suction was extra-large, and we had to improvise the tubing to do the procedure, but the procedure went on, and the products of conception were obtained from inside the uterus. The estimated blood loss was approximately 50 mL. The patient did well. Hemostasis was achieved. The patient was given intravenous Pitocin and also antibiotics for prevention of infection. Patient tolerated procedures well and was transferred to the recovery room with stable vital signs and good hemostasis. RAHAT GRIJALVA M.D. [id number]
[2018-11-21 09:18] VITALS: TEMP 97.5
[2018-11-21 13:22] VITALS: BP 100/50; PULSE 80
--- NOTE | 2018-11-23 20:47 | PATH ---
Surgical Pathology Report Patient Name: CHERYL AMADOR [facility]. Rec. #: [id number] /Age/Gender: 1990 (Age: 28) / F Account: [id number] Location: [facility] SURGICAL Taken: 11/21/2018 Received: 11/21/2018 Reported: 11/23/2018 Physicians: David Grijalva M.D. Specimen(s) Received PRODUCTS OF CONCEPTION Clinical History Missed Final Diagnosis PRODUCTS OF CONCEPTION, DILATION AND CURETTAGE: IMMATURE CHORIONIC VILLI CONSISTENT WITH PRODUCTS OF CONCEPTION. Electronically Signed Jes Villalobos M.D. Gross Description Received in formalin labeled "products of conception," is an 11.0 x 7.5 x 1.2 cm aggregate of morfin red soft tissue fragments. Villous tissue is identified. No somatic tissue is identified. A community health program representative portion is submitted in one cassette. /11/22/2018 saudi11/22/2018
== END 2018-11-21 11:00 | disposition home or self-care (01) ==
LOC: JASU-SURG 06:14
PROVIDERS: ATTEND Obstetrics & Gynecology
PROC: 10D17ZZ Extraction of Products of Conception, Retained, Via Natural or Artificial Opening (ICD-10-PCS; principal; 2018-11-21 08:00)
DX: O02.1 Missed abortion (principal)
CPT/HCPCS: 86850; 86900; 86901; 88305-TC; 94760

== ENCOUNTER 2019-11-10 10:34 | Inpatient (IN) | payer OTHER ==
[2019-11-10] MEDS ORDERED: BUTORPHANOL TARTRATE 1 MG/ML VIAL IVPUSH ONE (11:41)
[2019-11-10] MEDS ORDERED: PROMETHAZINE HCL 25 MG/1 ML VIAL IVPB ONE (11:41)
--- NOTE | 2019-11-10 11:45 | PN ---
Progress Note (short form) - Note Progress Note: cx 5 cm , 100 vx 0 , mr , fhr cat 1, regular contraction
--- NOTE | 2019-11-10 11:50 | HP ---
Past Medical History - Primary Care Physician PCP:: Emilio Morse - Admission Chief Complaint: 38 weeks, rom, labor History of Present Illness: 29 yo f 38.2 weeks c/o rom since 9 am today, has contraction since 9 am , no bleeding, no fever cx 5 cm, 100 vx 0 mr, nitrazine positive , fhr cat 1, regular contraction History Source: Patient Limitations to Obtaining History: No Limitations - Past Medical History ...: 5 ...Para: 1 ...Spon : 3 ... Weeks Gestation by Dates: 38.2 - Past Surgical History Past Surgical History: Yes: Cholecystectomy, Tonsillectomy (abdominioplasty) Hx Myomectomy: No Hx Transabdominal Cerclage: No - Smoking History Smoking history: Never smoked Have you smoked in the past 12 months: No Aproximately how many cigarettes per day: 0 - Alcohol/Substance Use Hx Alcohol Use: No History of Substance Use: reports: None - Social History History of Recent Travel: No Home Medications - Allergies Allergies/Adverse Reactions: Allergies Allergy/AdvReac Type Severity Reaction Status Date / Time No Known Allergies Allergy Verified 11/10/19 11:24 - Home Medications Home Medications: Ambulatory Orders Pnv No.95/Ferrous Fum/Folic AC [ Vitamin Tablet] 1 each PO DAILY Review of Systems - Review of Systems Constitutional: reports: No Symptoms Eyes: reports: No Symptoms HENT: reports: No Symptoms Neck: reports: No Symptoms Cardiovascular: reports: No Symptoms Respiratory: reports: No Symptoms Gastrointestinal: reports: No Symptoms Genitourinary: reports: No Symptoms Breasts: reports: No Symptoms Reported Musculoskeletal: reports: No Symptoms Integumentary: reports: No Symptoms Neurological: reports: No Symptoms Endocrine: reports: No Symptoms Hematology/Lymphatic: reports: No Symptoms Psychiatric: reports: No Symptoms Physical Exam - Maternity Constitutional: Yes: Well Nourished, No Distress, Calm Eyes: Yes: WNL, Conjunctiva Clear, EOM Intact HENT: Yes: WNL, Atraumatic, Normocephalic Neck: Yes: WNL, Supple, Trachea Midline Cardiovascular: Yes: WNL, Regular Rate and Rhythm Breast(s): Yes: WNL - Abdominal Exam/OB Fundal Height: 38 Number of Fetuses: Single Presentation: Vertex Contractions: Yes Regularity: Regular Intensity: Mod/Strong Monitor Mode: External Heart Rate Location: [facility] Category: I Accelerations: Non-Uniform Decelerations: None - Vaginal Exam/OB Vaginal Bleediing: No Speculum Exam: No Dilatation (cm): 5 cm Effacement (%): 80 Amniotic Membrane Status: Ruptured Nitrazine Test: Positive Amniotic Fluid: Yes: Clear Presentation: Vertex/Position Station: 0 - Physical Exam Musculoskeletal: Yes: WNL Edema: Yes Edema: LLE: Trace, RLE: Trace Deep Tendon Reflex Grade: Normal +2 ...Motor Strength: WNL Psychiatric: Yes: WNL Hemorrhage Risk Assessment - Risk Factors Medium Risk Factors: Yes: None High Risk Factors: Yes: None Risk Score: 1 Risk Level: Medium Risk Problem List - Problems (1) with 38 completed weeks gestation Code(s): Z3A.38 - 38 WEEKS GESTATION OF (2) membrane rupture Code(s): DDD7236 - (3) Labor established Code(s): GDE4254 - Assessment/Plan plan admit GBS negative FHM pain management
[2019-11-10 12:06] LABS: BASO % 0.5 % (0-2.0); EOS % 0.2 % (0-4.5); HEMATOCRIT 32.7 % (32.4-45.2); HEMOGLOBIN 10.6 GM/dL (10.7-15.3); MCH 28.3 pg (25.7-33.7); MCHC 32.5 g/dl (32.0-36.0); MEAN CELL VOLUME 86.9 fl (80-96); MEAN PLT VOLUME 8.7 fl (7.5-11.1); MONO % 4.9 % (3.8-10.2); NEUT % 78.4 % (42.8-82.8); PLATELET COUNT 218 K/MM3 (134-434); RBC 3.76 M/mm3 (3.60-5.2); RDW 14.8 % (11.6-15.6); WHITE BLOOD COUNT 16.7 K/mm3 (4.0-10.0)
[2019-11-10 12:09] VITALS: BMI 35.5
--- NOTE | 2019-11-10 12:12 | PN ---
Progress Note (short form) - Note Progress Note: cx 8 cm 100 vx 1+. fhr cat 1 Problem List - Problems (1) with 38 completed weeks gestation Code(s): Z3A.38 - 38 WEEKS GESTATION OF (2) membrane rupture Code(s): [id number] - (3) Labor established Code(s): [id number] -
[2019-11-10] MEDS ORDERED: DEXTROSE 5%-LACTATED RINGERS 1,000 ML IV SCH (12:15)
[2019-11-10] MEDS ORDERED: OXYTOCIN 20 UNITS in 0.9% NS 20 UNIT/1,000 ML INFUS.BAG IV ONE ×2 (12:17→14:08)
[2019-11-10] MEDS ORDERED: LIDOCAINE HCL 1% PRESERVATIVE FREE - 30ML VIAL ONE (12:17)
[2019-11-10 12:25] LABS: BLOOD UREA NITROGEN 4.3 mg/dL (7-18); CALCIUM 8.3 mg/dL (8.5-10.1); CREATININE 0.6 mg/dL (0.55-1.3); POTASSIUM 3.5 mmol/L (3.5-5.1)
[2019-11-10 12:29] LABS: INR 0.95 (0.83-1.09); PROTHROMBIN TIME (PATIENT) 11.2 SEC (9.7-13.0)
[2019-11-10 12:31] LABS: ACTIVATED PTT 25.7 SECONDS (25.2-36.5)
[2019-11-10] MEDS ORDERED: BENZOCAINE 28 GM HEMORRHOIDAL OINTMENT TP PRN (12:59)
[2019-11-10] MEDS ORDERED: METHYLERGONOVINE MALEATE 0.2 MG/1 ML AMP IM PRN (12:59)
[2019-11-10] MEDS ORDERED: WITCH HAZEL 50% (TUCKS) 40 PAD/JAR PAD TP PRN (12:59)
[2019-11-10] MEDS ORDERED: IBUPROFEN 600 MG TABLET (FP) PO PRN (12:59)
[2019-11-10] MEDS ORDERED: ACETAMINOPHEN 325 MG TABLET (FP) PO PRN (12:59)
[2019-11-10] MEDS ORDERED: BENZOCAINE 20% 57 GM BOTTLE TP PRN (12:59)
[2019-11-10] MEDS ORDERED: BISACODYL 10 MG SUPP.RECT RC PRN (12:59)
[2019-11-10] MEDS ORDERED: ELECTROLYTE-148 SOLN 1,000 ML IV SCH (13:00)
[2019-11-10] MEDS ORDERED: OXYTOCIN 20 UNITS in 0.9% NS 20 UNIT/1,000 ML INFUS.BAG IV SCH (13:00)
[2019-11-10] MEDS ORDERED: METHYLERGONOVINE MALEATE 0.2 MG/1 ML AMP IM ONE (13:03)
--- NOTE | 2019-11-10 13:03 | PN ---
Delivery - Delivery Vaginal Delivery: Spontaneous (cx full ,head delivered , nasopharynx suctioned , ant and post. shoulder with no difficulty, lave baby girl 8/9 . placenta complete, no laceration, baby bonded with mom, no complication) Type of Anesthesia: None Episiotomy/Laceration: None EBL (cc): 400 Delivery, Single - Feeding Plan Initial Plan: Exclusive throughout hospitalization
[2019-11-10] MEDS: FERROUS SO4 325 MG TABLET (FP) PO SCH (21:05)
[2019-11-10] MEDS: SENNOSIDES/DOCUSATE COMBO (SENNA PLUS) TABLET (UD) PO PRN (21:05)
[2019-11-11 07:42] LABS: BASO % 0.2 % (0-2.0); EOS % 0.2 % (0-4.5); HEMATOCRIT 27.8 % (32.4-45.2); HEMOGLOBIN 9.2 GM/dL (10.7-15.3); LYMPH % 20.3 % (8-40); MCH 29.3 pg (25.7-33.7); MCHC 33.2 g/dl (32.0-36.0); MEAN CELL VOLUME 88.2 fl (80-96); MEAN PLT VOLUME 8.7 fl (7.5-11.1); NEUT % 73.3 % (42.8-82.8); PLATELET COUNT 198 K/MM3 (134-434); RBC 3.15 M/mm3 (3.60-5.2); RDW 14.9 % (11.6-15.6); WHITE BLOOD COUNT 17.8 K/mm3 (4.0-10.0)
--- NOTE | 2019-11-11 08:25 | PN ---
Progress Note (short form) - Note Progress Note: PPD 1 NO C/O , VOIDS OK, NO EXCESS VAGINAL BLEEDING CBC, BMP 11/11/19 07:15 11/10/19 11:00 Last Vital Signs Temp Pulse Resp BP Pulse Ox 97.8 F 82 18 99/59 L 11/11/19 06:00 11/11/19 06:00 11/11/19 06:00 11/11/19 06:00 ABDOMEN SOFT, UTERUS FIRM, NON TENDER LOCHIA MILD NO CALF TENDERNESS PLAN AMBULATE , CBC Problem List - Problems (1) with 38 completed weeks gestation Code(s): Z3A.38 - 38 WEEKS GESTATION OF (2) membrane rupture Code(s): AZZ2019 - (3) Labor established Code(s): YPQ5862 -
[2019-11-11] MEDS: FERROUS SO4 325 MG TABLET (FP) PO SCH ×2 (09:09→21:59)
[2019-11-11] MEDS: PRENATAL VITAMINS W/ FOLIC ACID TABLET (FP) PO SCH (09:09)
[2019-11-11] MEDS: SENNOSIDES/DOCUSATE COMBO (SENNA PLUS) TABLET (UD) PO PRN (21:59)
--- NOTE | 2019-11-12 09:43 | PN ---
Post Progress Note - Subjective Subjective: Patient without acute complaints. Reports tolerating oral intake without nausea or vomiting. Ambulating without dizziness. Denies fevers or chills. Pain well controlled with oral pain medication. without difficulty. Passing flatus. Type of Delivery: Vital Signs: Vital Signs Temperature 98.0 F 11/11/19 20:41 Pulse Rate 77 11/11/19 20:41 Respiratory Rate 20 11/11/19 20:41 Blood Pressure 124/61 11/11/19 20:41 O2 Sat by Pulse Oximetry (%) Breast Exam: Yes: Soft Uterus: Yes: Fundus Firm, Fundus @ umbilicus Abdomen/GI: Yes: Abdomen soft, Passing flatus, Tolerating PO Lochia: Yes: Rubra Lochia, amount: Small Extremities: Yes: Calves non-tender Perineum: Yes: Intact Activity: Ambulating - Labs Labs: CBC WBC 17.8 K/mm3 (4.0-10.0) H 11/11/19 07:15 RBC 3.15 M/mm3 (3.60-5.2) L 11/11/19 07:15 Hgb 9.2 GM/dL (10.7-15.3) L 11/11/19 07:15 Hct 27.8 % (32.4-45.2) L 11/11/19 07:15 MCV 88.2 fl (80-96) 11/11/19 07:15 MCH 29.3 pg (25.7-33.7) 11/11/19 07:15 MCHC 33.2 g/dl (32.0-36.0) 11/11/19 07:15 RDW 14.9 % (11.6-15.6) 11/11/19 07:15 Plt Count 198 K/MM3 (134-434) 11/11/19 07:15 MPV 8.7 fl (7.5-11.1) 11/11/19 07:15 Absolute Neuts (auto) 13.0 K/mm3 (1.5-8.0) H 11/11/19 07:15 Neutrophils % 73.3 % (42.8-82.8) 11/11/19 07:15 Lymphocytes % 20.3 % (8-40) D 11/11/19 07:15 Monocytes % 6.0 % (3.8-10.2) 11/11/19 07:15 Eosinophils % 0.2 % (0-4.5) 11/11/19 07:15 Basophils % 0.2 % (0-2.0) 11/11/19 07:15 Nucleated RBC % 0 % (0-0) 11/11/19 07:15 Assessment/Plan 29yo P2 s/p VSS, Afebrile WBC trending down d/c home RTO 4-6wks NPV for 6 wks
[2019-11-12] MEDS: PRENATAL VITAMINS W/ FOLIC ACID TABLET (FP) PO SCH (10:05)
[2019-11-12] MEDS: FERROUS SO4 325 MG TABLET (FP) PO SCH (10:05)
[2019-11-12 11:19] LABS: BASO % 0.5 % (0-2.0); EOS % 1.2 % (0-4.5); HEMATOCRIT 32.4 % (32.4-45.2); HEMOGLOBIN 10.6 GM/dL (10.7-15.3); LYMPH % 26.4 % (8-40); MCH 29.1 pg (25.7-33.7); MCHC 32.8 g/dl (32.0-36.0); MEAN CELL VOLUME 88.5 fl (80-96); MEAN PLT VOLUME 8.9 fl (7.5-11.1); MONO % 4.9 % (3.8-10.2); PLATELET COUNT 253 K/MM3 (134-434); RBC 3.66 M/mm3 (3.60-5.2); RDW 15.2 % (11.6-15.6); WHITE BLOOD COUNT 13.4 K/mm3 (4.0-10.0)
[2019-11-12 11:23] VITALS: BP 114/81; PULSE 85; TEMP 97.7
--- NOTE | 2019-11-12 12:01 | DS ---
Physical Exam-POSITION CLASSIFIER Vital Signs: Vital Signs Temperature 97.7 F 11/12/19 09:00 Pulse Rate 85 11/12/19 09:00 Respiratory Rate 20 11/12/19 09:00 Blood Pressure 114/81 11/12/19 09:00 O2 Sat by Pulse Oximetry (%) Constitutional: Yes: Well Nourished, No Distress, Calm Eyes: Yes: WNL, Conjunctiva Clear, EOM Intact HENT: Yes: WNL, Atraumatic Neck: Yes: WNL, Supple, Trachea Midline Cardiovascular: Yes: WNL, Regular Rate and Rhythm Respiratory: Yes: WNL, Regular, CTA Bilaterally Gastrointestinal: Yes: WNL, Normal Bowel Sounds Renal/: Yes: WNL Pelvis: Yes: WNL External Genitalia: Yes: Normal ....Post : Yes: Uterus firm, Uterus non-tender Breast(s): Yes: WNL Musculoskeletal: Yes: WNL Extremities: Yes: WNL Edema: No Integumentary: Yes: WNL Neurological: Yes: WNL, Alert, Oriented ...Motor Strength: WNL Psychiatric: Yes: WNL, Alert, Oriented Labs: CBC, BMP 11/12/19 10:42 11/10/19 11:00 Delivery - Delivery Vaginal Delivery: Spontaneous (cx full ,head delivered , nasopharynx suctioned , ant and post. shoulder with no difficulty, lave baby girl 8/9 . 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 Present: No Infant Gender: Female Weight: 6 lb Position: Left, OA Total Hours ROM (Hrs/Mins): 3Hrs/45Mins - 1 Minute Total Score: 8 5 Minutes Total Score: 9 - [place] Feeding Plan Initial Plan: Exclusive throughout hospitalization Discharge Summary Problems reviewed: Yes Reason For Visit: LABOR ADMIT Current Active Problems membrane rupture (Acute) Labor established (Acute) with 38 completed weeks gestation (Acute) Procedures: Principal: Normal spontaneous vaginal delivery Hospital Course: Unremarkable Condition: Good - Instructions Diet, Activity, Other Instructions: Physical activity Resume your normal everyday activity as tolerated no heavy lifting or exercise until seen by your surgeon. You may walk unlimited luciana of and climb stairs. You may resume driving the car when you feel safe and comfortable behind the wheel. No sexual activity as instructed. Wound care If you have a bandage, leave it on, and keep dry for 48-72 hours. After that time discard the outer bandage. If they are tapes on the skin under the out of bandage leave them in place. They will peel off in the next 7 to 10 days. Do Not Peel them off. You may shower the day after surgery. If there are tapes present on the skin, you may shower over them. Diet There are no dietary restrictions. Eat healthy, high-fiber foods. Drink 6 to 8 glasses of liquid each day. This will assist in keeping your bowels are regular. Pain management You may take Tylenol or acetaminophen or Ibuprofen (for example, Motrin, Advil etc.) from my pain prescription medication is ordered should be taken as prescribed for moderate to severe pain. Call MD for any of the following: Severe pain not relieved by medication Fever of 101 or higher Excessive bleeding or drainage on dressing Inability to urinate Disposition: HOME - Home Medications Comprehensive Discharge Medication List: Ambulatory Orders Pnv No.95/Ferrous Fum/Folic AC [ Vitamin Tablet] 1 each PO DAILY
== END 2019-11-12 13:45 | disposition home or self-care (01) | DRG 560 ==
LOC: JLDR 10:34 → J3W 14:15
PROVIDERS: ADMIT Obstetrics & Gynecology; ATTEND Obstetrics & Gynecology
PROC: 10E0XZZ Delivery of Products of Conception, External Approach (ICD-10-PCS; principal; 2019-11-10)
DX: O80 Encounter for full-term uncomplicated delivery (principal); Z3A.38 38 weeks gestation of pregnancy; Z37.0 Single live birth
CPT/HCPCS: 36415; 36600; 59409; 80048; 82803; 85025; 85610; 85730; 86593; 86850; 86900; 86901; 87389

== ENCOUNTER 2024-02-20 04:14 | Day surgery (SDC) | payer OTHER ==
[2024-02-14 11:21] VITALS: BMI 32.9
[2024-02-20] MEDS ORDERED: BUPIVACAINE HCL/PF 0.25% (2.5MG/ML) 10 ML VIAL ONE (08:55)
[2024-02-20] MEDS ORDERED: BUPIVACAINE HCL/PF 0.5% (5MG/ML) 10 ML VIAL ONE (09:25)
[2024-02-20] MEDS ORDERED: MIDAZOLAM HCL 2 MG/2 ML SINGLE DOSE VIAL ONE (09:51)
[2024-02-20] MEDS ORDERED: FENTANYL CITRATE/PF 50 MCG/ML VIAL ONE ×4 (09:52→11:43)
[2024-02-20] MEDS ORDERED: PROPOFOL 40 ML ONE (09:56)
[2024-02-20] MEDS ORDERED: LIDOCAINE HCL/PF 2% SDV 5ML VIAL ONE (09:56)
[2024-02-20] MEDS ORDERED: ROCURONIUM BROMIDE 50 MG/5 ML SYRINGE ONE ×2 (09:57→10:39)
[2024-02-20] MEDS: ceFAZolin SODIUM 1 GM VIAL IVPB ONE (10:06)
[2024-02-20] MEDS ORDERED: ESMOLOL HCL 100,000 MCG/10 ML VIAL ONE (10:12)
[2024-02-20] MEDS ORDERED: ceFAZolin SODIUM 1 GM VIAL ONE (10:12)
[2024-02-20] MEDS ORDERED: ONDANSETRON 4 MG/2 ML VIAL ONE ×2 (10:16→11:13)
[2024-02-20] MEDS ORDERED: DEXAMETHASONE SOD PHOSPHATE 4 MG/1 ML VIAL ONE (10:16)
[2024-02-20] MEDS ORDERED: PROPOFOL 20 ML ONE (10:32)
[2024-02-20] MEDS ORDERED: SUGAMMADEX SODIUM 200 MG/2 ML VIAL ONE (10:32)
[2024-02-20] MEDS ORDERED: NEOSTIGMINE METHYLSULFATE 0.5 MG/1 ML - 10 ML MDV ONE ×2 (11:01→11:07)
[2024-02-20] MEDS ORDERED: GLYCOPYRROLATE 0.2 MG/1 ML VIAL ONE (11:07)
[2024-02-20] MEDS ORDERED: oxyCODONE HCL 5 MG TABLET PO PRN (11:27)
[2024-02-20] MEDS ORDERED: ONDANSETRON 4 MG/2 ML VIAL IVPUSH PRN (11:27)
[2024-02-20] MEDS ORDERED: LACTATED RINGERS SOLUTION 1,000 ML IV SCH (11:30)
[2024-02-20 13:32] VITALS: PULSE 78
[2024-02-20 14:09] VITALS: BP 120/77; RESP 18; TEMP 97.6
== END 2024-02-20 14:33 | disposition home or self-care (01) ==
LOC: JASU-SURG 04:14
PROVIDERS: ATTEND Obstetrics & Gynecology
PROC: 0UB74ZZ Excision of Bilateral Fallopian Tubes, Percutaneous Endoscopic Approach (ICD-10-PCS; principal; 2024-02-20 09:30)
DX: Z30.2 Encounter for sterilization (principal)
CPT/HCPCS: 81025; 88305-TC; 94760